=== PATIENT | male | born 1985 | race Caucasian/White ===

== ENCOUNTER 2017-01-12 20:30 | Emergency (ER) | payer SELFPAY ==
[~2017-01-12] VITALS: Ht 176.5 cm; Wt 113.0 kg
[~2017-01-12 20:30] MED LIST: AUGMENTIN OR; CORTISPORIN OTI10 M1 OT; DENIES CURRENT MEDS; DOXY-CAPS100 MG OR; LOTRISONE EX; NO HOME MEDS; REQUIP0.5 MG PO; ULTRAM50 MG OR
[2017-01-12] MEDS ORDERED: LORTAB 10-325 M1 TAB PO (21:51)
[2017-01-12] MEDS ORDERED: BACTRIM DS1 TAB PO (21:51)
[2017-01-12 22:10] VITALS: BP 134/94
== END 2017-01-12 22:17 | disposition home or self-care (01) | DRG 603 ==
LOC: ED 20:30
PROC: 0H9CXZZ Drainage of Left Upper Arm Skin, External Approach (ICD-10-PCS; principal; 2017-01-12)
DX: L02.412 Cutaneous abscess of left axilla (principal); B95.61 Methicillin susceptible Staphylococcus aureus infection as the cause of diseases classified elsewhere

== ENCOUNTER 2017-01-13 21:56 | Emergency (ER) | payer SELFPAY ==
[~2017-01-13] VITALS: Ht 176.5 cm; Wt 182.6 kg
[~2017-01-13 21:56] MED LIST changes: +BACTRIM DS1 TAB PO; +LORTAB 10-325 M1 TAB PO
[2017-01-13 22:50] VITALS: BP 134/85
== END 2017-01-13 22:50 | disposition home or self-care (01) | DRG 951 ==
LOC: ED 21:56
DX: Z48.01 Encounter for change or removal of surgical wound dressing (principal); L02.412 Cutaneous abscess of left axilla

== ENCOUNTER 2017-06-28 20:04 | Emergency (ER) | payer SELFPAY ==
[~2017-06-28] VITALS: Ht 176.5 cm; Wt 104.5 kg
[2017-06-28] MEDS ORDERED: BACTRIM DS1 TAB PO (21:34)
[2017-06-29 04:31] VITALS: BP 132/79
== END 2017-06-28 21:50 | disposition home or self-care (01) | DRG 603 ==
LOC: ED 20:04
PROC: 0X953ZZ Drainage of Left Axilla, Percutaneous Approach (ICD-10-PCS; principal; 2017-06-28)
DX: L02.412 Cutaneous abscess of left axilla (principal); L03.112 Cellulitis of left axilla

== ENCOUNTER 2018-01-09 18:22 | Emergency (ER) | payer SELFPAY ==
[~2018-01-09] VITALS: Ht 176.5 cm; Wt 107.2 kg
[2018-01-09 19:44] LABS: HEMATOCRIT 46.9 % (39.0-50.0); IMMATURE GRANULOCYTES 0.6 % (0.0-5.0); MEAN CELL VOLUME 88.7 fL CALC (80.0-100.0); MEAN CORPUSCULAR HGB 30.2 pG CALC (26.0-32.0); MEAN CORPUSCULAR HGB CONC 34.1 g/L CALC (32.0-36.0); NEUT# 2.52 thou/uL (1.82-7.42); RED BLOOD COUNT 5.29 mill/uL (4.70-6.10); RED CELL DISTRI WIDTH 12.6 % (11.5-15.5)
[2018-01-09 19:57] LABS: ALBUMIN 4.7 g/dL (3.2-5.0); ALKALINE PHOSPHATASE 44 u/l (38-126); ANION GAP 18 (6-22 (CALC)); BILIRUBIN, TOTAL 0.6 mg/dL (0.0-1.4); BUN 14 mg/dL (9-20); BUN/CREATININE RATIO 15 (12-20 (CALC)); CARBON DIOXIDE 23 mmol/l (22-30); CHLORIDE 106 mmol/l (95-108); GFR > 60 ML/MIN (>=60 (CALC)); GFR FOR AFR.AMER. > 60 ML/MIN (>=60 (CALC)); POTASSIUM 4.1 mmol/l (3.5-5.1); SGOT/AST 58 u/l (17-59); SODIUM 143 mmol/l (137-146); TOTAL PROTEIN 8.1 g/dL (6.3-8.2)
[2018-01-09 20:14] LABS: URINE BILIRUBIN - DIPSTICK NEGATIVE (NEGATIVE); URINE BLOOD DIPSTICK NEGATIVE (NEGATIVE); URINE COLOR YELLOW; URINE GLUCOSE - DIPSTICK NEGATIVE (NEGATIVE); URINE KETONE NEGATIVE (NEGATIVE); URINE LEUK ESTERASE NEGATIVE (NEGATIVE); URINE NITRITE - DIPSTICK NEGATIVE (Negative); URINE PH 6.5 (4.5-8.0); URINE PROTEIN - DIPSTICK NEGATIVE (NEG-TRACE); URINE SPECIFIC GRAVITY 1.025; URINE UROBILINOGEN - DIPSTICK 0.2 E.U./dL (0.2)
[2018-01-09 20:18] LABS: URINE CLARITY CLEAR
[2018-01-09 20:50] VITALS: BP 137/81
== END 2018-01-09 20:50 | disposition home or self-care (01) | DRG 392 ==
LOC: ED 18:22
PROVIDERS: Family Medicine
DX: R10.30 Lower abdominal pain, unspecified (principal); F17.220 Nicotine dependence, chewing tobacco, uncomplicated

== ENCOUNTER 2018-03-23 19:04 | Emergency (ER) | payer SELFPAY ==
[~2018-03-23] VITALS: Ht 176.5 cm; Wt 108.0 kg
[2018-03-23] MEDS ORDERED: AMOXICILLIN500 MG PO (19:19)
[2018-03-23 19:25] VITALS: BP 134/92
== END 2018-03-23 19:25 | disposition home or self-care (01) | DRG 153 ==
LOC: ED 19:04
DX: J03.90 Acute tonsillitis, unspecified (principal); F17.220 Nicotine dependence, chewing tobacco, uncomplicated

== ENCOUNTER 2018-05-15 21:52 | Emergency (ER) | payer SELFPAY ==
[~2018-05-15] VITALS: Ht 176.5 cm; Wt 109.0 kg
[~2018-05-15 21:52] MED LIST changes: +AMOXICILLIN500 MG PO
[2018-05-15 23:12] LABS: HEMOGLOBIN 14.3 g/dl (14.0-18.0); IMMATURE GRANULOCYTES 0.4 % (0.0-5.0); MEAN CELL VOLUME 87.7 fL CALC (80.0-100.0); MEAN CORPUSCULAR HGB 30.8 pG CALC (26.0-32.0); NEUT# 2.39 thou/uL (1.82-7.42); RED BLOOD COUNT 4.65 mill/uL (4.70-6.10); RED CELL DISTRI WIDTH 12.4 % (11.5-15.5)
[2018-05-15 23:13] LABS: URINE BILIRUBIN - DIPSTICK NEGATIVE (NEGATIVE); URINE BLOOD DIPSTICK TRACE-LYSED (NEGATIVE); URINE COLOR YELLOW; URINE GLUCOSE - DIPSTICK NEGATIVE (NEGATIVE); URINE KETONE NEGATIVE (NEGATIVE); URINE LEUK ESTERASE NEGATIVE (NEGATIVE); URINE NITRITE - DIPSTICK NEGATIVE (Negative); URINE PH 5.5 (4.5-8.0); URINE PROTEIN - DIPSTICK NEGATIVE (NEG-TRACE); URINE UROBILINOGEN - DIPSTICK 0.2 E.U./dL (0.2)
[2018-05-15 23:14] LABS: HEMATOCRIT 40.8 % (39.0-50.0)
[2018-05-15 23:25] LABS: ALBUMIN 4.5 g/dL (3.2-5.0); ALKALINE PHOSPHATASE 47 u/l (38-126); ANION GAP 15 (6-22 (CALC)); BILIRUBIN, TOTAL 0.5 mg/dL (0.0-1.4); BUN 16 mg/dL (9-20); BUN/CREATININE RATIO 14 (12-20 (CALC)); CARBON DIOXIDE 26 mmol/l (22-30); CHLORIDE 104 mmol/l (95-108); CREATININE 1.2 mg/dL (0.7-1.3); GFR > 60 ML/MIN (>=60 (CALC)); GFR FOR AFR.AMER. > 60 ML/MIN (>=60 (CALC)); POTASSIUM 3.8 mmol/l (3.5-5.1); SGOT/AST 25 u/l (17-59); SODIUM 141 mmol/l (137-146); TOTAL PROTEIN 7.2 g/dL (6.3-8.2)
[2018-05-15] MEDS ORDERED: TORADOL PO (23:31)
[2018-05-16] VITALS: BP 126/86
== END 2018-05-16 | disposition home or self-care (01) | DRG 563 ==
LOC: ED 21:52
PROVIDERS: Family Medicine
DX: S39.012A Strain of muscle, fascia and tendon of lower back, initial encounter (principal); R51 Headache; X58.XXXA Exposure to other specified factors, initial encounter; F17.220 Nicotine dependence, chewing tobacco, uncomplicated